=== PATIENT | female | born 1985 | race Caucasian/White ===

== ENCOUNTER 2019-11-29 12:54 | Emergency (ER) | payer MEDICAID ==
[~2019-11-29] VITALS: Ht 162.6 cm; Wt 111.1 kg
[~2019-11-29 12:54] MED LIST: CILOXAN5 ML OD; IBUPROFEN800 MG PO; KEFLEX500 MG PO; LEVOTHYROXINE137 MCG PO; NORCO 5-325 TA1 EACH PO; TYLENOL325 MG PO
[2019-11-29] MEDS ORDERED: DICLOFENAC SODI25 MG (13:10)
[2019-11-29] MEDS ORDERED: PROZAC10 MG PO (13:10)
== END 2019-11-29 13:30 | disposition home or self-care (01) ==
LOC: ED 12:54
DX: T19.2XXA Foreign body in vulva and vagina, initial encounter (principal); D64.9 Anemia, unspecified; F17.200 Nicotine dependence, unspecified, uncomplicated; Z88.0 Allergy status to penicillin; Z88.2 Allergy status to sulfonamides; Z79.899 Other long term (current) drug therapy; W45.8XXA Other foreign body or object entering through skin, initial encounter
CPT/HCPCS: 99283